=== PATIENT | female | born 1985 | race American Indian/Alaskan Native ===

== ENCOUNTER 2021-02-22 10:52 | Outpatient (CLI) | payer MEDICAID ==
[2021-02-22] MEDS ORDERED: LACTATED RINGERS 500 ML IV ONE (11:46)
--- NOTE | 2021-02-22 12:28 | Ultrasound Report ---
ULTRASOUND BIOPHYSICAL PROFILE INDICATION / CLINICAL INFORMATION: decreased movement. COMPARISON: None available. FINDINGS: BREATHING MOVEMENT = 2 GROSS BODY MOVEMENT = 2 TONE = 2 QUALITATIVE AMNIOTIC FLUID VOLUME = 2 TOTAL BIOPHYSICAL SCORE = 01/27 PRESENTATION: Cephalic. HEART RATE (beats per minute): 150 IMPRESSION: 1. biophysical profile = 01/27 Signer Name: Donald Cruz MD Signed: 02/22/2021 12:24 PM Workstation Name: [id number]
== END 2021-02-22 13:17 | disposition home or self-care (01) ==
LOC: TRG 10:52 → APU 10:53 → TRG 13:17
PROVIDERS: ATTEND Student in an Organized Health Care Education/Training Program
DX: O09.893 Supervision of other high risk pregnancies, third trimester (principal); Z3A.33 33 weeks gestation of pregnancy
CPT/HCPCS: 59025; 76819

== ENCOUNTER 2021-03-11 16:09 | Outpatient (CLI) | payer OTHER, MEDICAID ==
[2021-03-11] MEDS ORDERED: LACTATED RINGERS 1,000 ML IV ONE ×2 (16:20→16:21)
[2021-03-11] MEDS ORDERED: METOCLOPRAMIDE 10 MG/2 ML INJ IV ONE ×2 (16:21)
[2021-03-11] MEDS ORDERED: ONDANSETRON 4 MG/2 ML INJ IV ONE ×2 (16:21→16:24)
[2021-03-11 16:40] VITALS: BP 112/72
[2021-03-11 17:19] LABS: Bacteria,Urine 2+ /HPF (Negative); Bilirubin,Urine SM (Negative); Blood,Urine NEG (Negative); Color,Urine Amber (Yellow); Mucus,Urine 3+ /HPF
[2021-03-11 17:39] LABS: Ictotest,Urine Negative (Negative)
== END 2021-03-11 19:06 | disposition home or self-care (01) ==
LOC: TRG 16:09 → APU 16:12 → TRG 19:06
PROVIDERS: ATTEND Obstetrics & Gynecology
DX: O21.2 Late vomiting of pregnancy (principal); O24.419 Gestational diabetes mellitus in pregnancy, unspecified control; O26.893 Other specified pregnancy related conditions, third trimester; R10.9 Unspecified abdominal pain; O09.523 Supervision of elderly multigravida, third trimester; Z3A.36 36 weeks gestation of pregnancy; Z87.891 Personal history of nicotine dependence
CPT/HCPCS: 81001; 96361; 96365; 96368; J2405; J2765; J7120

== ENCOUNTER 2021-04-01 09:15 | Inpatient (IN) | payer MEDICAID ==
--- NOTE | 2021-03-29 18:11 | History and Physical Report ---
History of Present Illness Date of examination: 03/25/21 Date of admission: 04/01/21 Chief complaint: here for and to get my tubes tide History of present illness: Pt present for scheduled repeat c/s with BTL. Pt has been complicated by obesity, GDM for which she is on metformin, as well as AMA. All risk, benefits and alternatives were d/w pt and questions were addressed and answered. Consents were signed and placed on the chart. EDC Confirmation: 04/07/2021 Gestational Age: 38.5 weeks Past History : 4 Term Births: 2 Premature Births: 0 Living Children: 2 Para: 2 Mult. Births: 0 Prev : 2 Prev. attempt? 0 Aborta: 1 Elect. Ab: 0 Spont. Ab: 1 Ectopics: 0 # 1 Delivery date: 2010 Weeks Gestation: term Delivery type: Anesthesia type: epidural Delivery location: [facility] Infant Sex: Male weight: 6-7 Name: Rebekah Comments: c/s was due to failue to dilate; "I have a little pelvis" # 2 Delivery date: 2014 Weeks Gestation: term Delivery type: Anesthesia type: epidural Delivery location: [facility] Infant Sex: Male weight: 8-3 Name: Nelly Comments: GDM oral meds, denies surgical complications # 3 Delivery date: 12/2019 Weeks Gestation: 7 Delivery type: SAB Comments: pt states she had heavy bleeding then pain Past Medical History: Negative Past Medical History GDM 2015 Glyburide pt states she had HTN in the past Past Surgical History: X 2 2010 and 2014 Cholecystectomy 2011 Past Medical History 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 Infection History Hx of STD: none HIV Risk Eval: no Hepatitis B Risk Eval: low risk Personal hx. of genital herpes: no Partner hx. of genital herpes: no Rash, Viral, or Febrile illness since last LMP? no Varicella/Chicken Pox Status: Previous Disease TB Risk: no Genetic History ADVANCED MATERNAL AGE Congenital Heart Defect: Mom: no Dad: no Josh Disease: Mom: no Dad: no Thalassemia Mom: no Dad: no Neural Tube Defect Mom: no Dad: no Down's Syndrome Mom: no Dad: no Ralph-Sachs Mom: no Dad: no Sickle Cell Disease/Trait Mom: no Dad: no Hemophilia Mom: no Dad: no Muscular Dystrophy Mom: no Dad: no Cystic Fibrosis Mom: no Dad: no [place] Chorea Mom: no Dad: no Mental Retardation Mom: no Dad: no Fragile X Mom: no Dad: no Other Genetic/Chromosomal Disorder Mom: no Dad: no Child w/other defect Mom: no Dad: no Enviromental Exposures Xray Exposure: no Medication, drug, or alcohol use since LMP: no Chemical/Other Exposure: no Exposure to Cat Liter: no Hx of Parvovirus (Fifth Disease): no Occupational Exposure to Children: none Past History Past Medical History: other (see hpi) Past Surgical History: other (see hpi) OENOLOGIST History: other (see hpi) Family/Genetic History: other (see hpi) Social history: other (see hpi) - Obstetrical History Expected Date of Delivery: 04/07/21 Actual Gestation: 38 Week(s) 5 Day(s) : 5 Para: 2 Number of Living Children: 2 Medications and Allergies Allergies Allergy/AdvReac Type Severity Reaction Status Date / Time Latex, Natural Rubber Allergy Severe Itching Verified 03/11/21 16:39 shellfish derived Allergy Rash Verified 03/11/21 16:39 Home Medications Medication Instructions Recorded Confirmed Last Taken Type glyBURIDE [Glyburide] 1 tab PO BID 08/09/14 08/14/14 08/09/14 10:00 History Ibuprofen [Motrin 800 MG tab] 800 mg PO Q6H PRN #30 tablet 08/14/14 Unknown Rx oxyCODONE /ACETAMINOPHEN [Percocet 1 tab PO Q4HR #30 tablet 08/14/14 Unknown Rx 5/325 mg] Metoclopramide [Reglan] 10 mg PO TID #30 tab 03/11/21 Unknown Rx Ondansetron [Zofran ODT TAB] 8 mg PO Q12HR #15 tab.rapdis 03/11/21 Unknown Rx Review of Systems All systems: negative - Physical Exam Cardiovascular: Normal S1, Normal S2 Lungs: Positive: Clear to auscultation, Normal air movement Abdomen: Positive: normal appearance, soft. Negative: distention, tenderness, guarding Genitourinary (Female): Positive: other (deferred) Extremities: Positive: normal. Negative: tenderness, edema Deep Tendon Reflex Grade: Normal +2 - Obstetrical FHR: auscultation normal Results All other labs normal. Assessment and Plan - Patient Problems (1) Previous delivery affecting Status: Acute Plan to address problem: -consents signed and placed on the chart -all risk, benefits and alternatives were d/w pt (2) Encounter for sterilization Status: Acute Plan to address problem: -all risk, benefits and alternatives were d/w pt -pt desires salpingectomy (3) AMA (advanced maternal age) multigravida 35+ Status: Acute Qualifiers: Trimester: third trimester Qualified Code(s): O09.523 - Supervision of elderly multigravida, third trimester (4) GDM (gestational diabetes mellitus) Status: Acute Qualifiers: Gestational diabetes mellitus control: oral hypoglycemic-controlled Trimester: third trimester Qualified Code(s): O24.415 - Gestational diabetes mellitus in , controlled by oral hypoglycemic drugs
[~2021-04-01 09:15] MED LIST: ceFAZolin/Water 2 GM/20 ML 2 GM/20 ML SYRINGE IV NR
[2021-04-01] MEDS ORDERED: METOCLOPRAMIDE 10 MG/2 ML INJ IV SCH (09:30)
[2021-04-01] MEDS ORDERED: FAMOTIDINE 20 MG/2 ML INJ IV SCH (09:30)
[2021-04-01] MEDS ORDERED: LACTATED RINGERS 1,000 ML IV SCH (09:30)
[2021-04-01] MEDS ORDERED: OXYTOCIN DRIP 30 UNITS/500 ML BAG IV SCH (09:30)
[2021-04-01] MEDS ORDERED: BICITRA ORAL LIQD 30ML PO SCH (09:30)
--- NOTE | 2021-04-01 10:12 | Anesthesia Day of Surgery ---
Anesthesia Day of Surgery - Day of Surgery Patient Examined: Yes Patient H&P Reviewed: Yes Patient is NPO: Yes Beta Blockers: No Cardiac Clearance: No Pulmonary Clearance: No Scott's Test: N/A
--- NOTE | 2021-04-01 10:15 | Anesthesia Consultation ---
Anesthesia Consult and Med Hx Date of service: 04/01/21 - Airway Anesthetic Teeth Evaluation: Good ROM Head & Neck: Adequate Mental/Hyoid Distance: Adequate Mallampati Class: Class II Intubation Access Assessment: Good - Pulmonary Exam CTA: Yes - Cardiac Exam Cardiac Exam: RRR - Pre-Operative Health Status ASA Pre-Surgery Classification: ASA2 Proposed Anesthetic Plan: Spinal Nerve Block: TAP - Pulmonary Hx Smoking: Yes (quit with ) Hx Asthma: No Hx Respiratory Symptoms: No SOB: No COPD: No Home Oxygen Therapy: No Hx Pneumonia: No Hx Sleep Apnea: No - Cardiovascular System Hx Hypertension: No Hx Coronary Artery Disease: No Hx Heart Attack/AMI: No Hx Angina: No Hx Percutaneous Transluminal Coronary Angioplasty (PTCA): No Hx Cardia Arrhythmia: No Hx Pacemaker: No Hx Internal Defibrillator: No Hx Valvular Heart Disease: No Hx Heart Murmur: No Hx Peripheral Vascular Disease: No - Central Nervous System Hx Neuromuscular Disorder: No Hx Seizures: No CVA: No Hx Back Pain: No Hx Psychiatric Problems: No - Gastrointestinal Hx Ulcer: No Hx Gastroesophageal Reflux Disease: Yes - Endocrine Hx Renal Disease: No Hx End Stage Renal Disease: No Hx Cirrhosis: No Hx Liver Disease: No Hx Insulin Dependent Diabetes: Yes (gestational diabetes) Hx Non-Insulin Dependent Diabetes: No Hx Thyroid Disease: No Hx Hypothyroidism: No Hx Hyperthyroidism: No - Hematic Hx Anemia: No Hx Sickle Cell Disease: No - Other Systems Hx Alcohol Use: No Hx Substance Use: No Hx Cancer: No Hx Obesity: Yes (BMI 60) - Additional Comments Anesthesia Medical History Comments: C/Sx2
[2021-04-01] MEDS ORDERED: KETOROLAC 30 MG/1 ML INJ ONE (10:24)
[2021-04-01] MEDS ORDERED: ONDANSETRON 4 MG/2 ML INJ ONE ×2 (10:24→11:45)
[2021-04-01] MEDS ORDERED: dexAMETHasone 20 MG/5 ML VIAL ONE (10:27)
[2021-04-01] MEDS ORDERED: BUPIVACAINE/PF (0.5%) 5 MG/1 ML 30 ML VIAL INFILTRATI ONE (10:27)
[2021-04-01 10:29] LABS: Basophils % (Auto) 0.3 % (0.0-1.8); Eosinophils % (Auto) 0.4 % (0.0-4.3); Hematocrit 33.5 % (30.3-42.9); Hemoglobin 11.2 gm/dl (10.1-14.3); Lymphocytes # (Auto) 1.9 K/mm3 (1.2-5.4); Lymphocytes % (Auto) 29.4 % (13.4-35.0); Mean Corpuscular HGB Conc 34 % (30-34); Mean Corpuscular Volume 76 fl (79-97); Monocytes # (Auto) 0.6 K/mm3 (0.0-0.8); Monocytes % (Auto) 9.1 % (0.0-7.3); Platelet Count 288 K/mm3 (140-440); Red Cell Distribution Width 18.3 % (13.2-15.2)
[2021-04-01] MEDS ORDERED: HYDROmorphone 1 MG/1 ML INJ IV PRN (11:00)
[2021-04-01] MEDS ORDERED: NalbUPHINE 10 MG/1 ML INJ IV PRN (11:00)
[2021-04-01] MEDS ORDERED: ONDANSETRON 4 MG/2 ML INJ IV PRN (11:00)
[2021-04-01] MEDS ORDERED: diphenhydrAMINE 50 MG/ML VIAL IV PRN (11:00)
[2021-04-01] MEDS ORDERED: PROMETHAZINE 25 MG TAB PO PRN (11:00)
[2021-04-01] MEDS ORDERED: PROMETHAZINE 25 MG RECT SUPP PR PRN (11:00)
[2021-04-01] MEDS ORDERED: NALOXONE 0.4 MG/1 ML INJ IV PRN ×2 (11:00→13:30)
[2021-04-01] MEDS ORDERED: ceFAZolin 1 GM VIAL ONE (11:37)
[2021-04-01] MEDS ORDERED: LACTATED RINGERS 1,000 ML ONE (11:41)
[2021-04-01] MEDS ORDERED: PHENYLEPHRINE/NS 1,000 MCG/10 ML SYRINGE (OR USE) IV ONE (11:45)
[2021-04-01] MEDS ORDERED: ceFAZolin/STERILE WATER 2 GM/20 ML SYRINGE IV ONE (11:50)
--- NOTE | 2021-04-01 12:52 | Progress Note ---
Spinal Anesthesia Block - Spinal Anesthesia Block Start Time: 11:55 Stop Time: 12:10 Performed by:: BEE HANSEN (Abida Hernandez [facility]) Procedure: Combined spinal epidural is being performed for C/S. H&P, labs were reviewed. All questions and concerns were answered. Informed consent was obtained. Timeout performed. Patient in sitting position on side of bed. Sterile prep and drape was performed. 3 mL 1% lidocaine skin wheal at L [3]-L [4]. Needle introducer advanced. 25-gauge spinal needle advanced, unsuccessful attempt. 3 mL 1% lidocaine skin wheal at L [2]-L [3]. 18-gauge hustead epidural needle advanced to [id number] using air technique, [9]. 27-gauge spinal needle advanced, positive free-flowing CSF. Spinal dose of [Marcaine 10mg and Precedex 5mcg]. Epidural catheter advanced to [15] cm. [negative] Aspiration, [negative] test dose. Sterile dressing applied. Patient tolerated procedure well.
--- NOTE | 2021-04-01 13:27 | Operative Report ---
Operative Report Operative Report: Date of procedure: 04/01/2021 Pre-operative diagnosis: 39 weeks gestation Gestational diabetes Morbid obesity Previous section x2 Desires permanent sterilization Post-operative diagnosis: Same Procedure name(s): Repeat section Via Pfannenstiel skin incision Bilateral salpingectomy Surgeon: Dr. Pablo Doors Prefitter: ESVIN Anesthesia: Combined spinal epidural EBL: Qualitative blood loss 1311 mL Urine output: 100 mL of clear urine out at the end of the procedure Fluids: 1200 mL Findings: Liveborn male infant weight 6 pounds 13 ounces Apgars of 8 and 9 at 1 and 5 minutes What appeared to be evidence of endometriosis on the anterior and posterior surfaces of the uterus Grossly normal fallopian tubes and ovaries bilaterally Indications: Patient presents for scheduled repeat section with bilateral tubal ligation. All risk benefits and alternatives were discussed with the patient. Patient desired removal of fallopian tubes. Consents were signed and placed on the chart. Procedure: Patient was taking to the operating room. Patient was then prepped and draped in sterile fashion after anesthesia was found to be adequate. A low transverse skin incision was made with the scalpel through previous incisional scar and carried down to the underlying layer of fascia with the Bovie. The fascia was then incised in the midline and this incision was extended bilaterally with the Bovie. The superior aspect of the fascia was grasped with Uma clamps tented upward and dissected off of the anterior rectus muscles with the scalpel. In similar fashion the inferior aspect of the fascia was grasped with Uma clamps tented upward and dissected off of the anterior rectus muscles. The rectus muscles were then bluntly divided in the midline. The peritoneum was identified and entered into sharply. The bladder blade was placed. [The bladder flap was created using the Metzenbaum scissors.] The bladder blade was replaced. [The Jacobo retractor was placed.] A lower transverse uterine incision was made with the scalpel and extended bilaterally with the bandage scissors. Artificial rupture of membranes was performed yielding [clear amniotic fluid]. The 's head was then delivered atraumatically. The anterior shoulder and rest of delivered without difficulty. The umbilical cord was clamped x2. The cord was cut. The was then placed in sterile bassinet. [The cord blood was collected.] The placenta was manually extracted in its entirety. The uterus was exteriorized and cleared of all clots and debris. The uterine incision was closed using 0 Vicryl in a running locking fashion. [id number] sutures were then placed along the uterine incision to secure excellent hemostasis. Attention was then turned to the right fallopian tube. The tube was undermined with the Madonna clamp cauterized and transected. The tube was removed in its entirety and handed off to pathology. Excellent hemostasis was noted. This was done bilaterally. The posterior cul-de-sac was copiously irrigated. The uterus was returned to the abdomen. The gutters were also irrigated. The anterior rectus muscles were reapproximated using 3-0 Vicryl. The anterior rectus fascia was reapproximated using 0 Vicryl in a running fashion. The subcuticular fat was reapproximated using 2-0 Vicryl in a running fashion. The skin was reapproximated with a 4-0 Monocryl with a subcuticular stitch.. The patient tolerated the procedure well. Sponge lap and needle counts were all correct x3. Patient was taken to the recovery room awake and in stable condition.
[2021-04-01] MEDS ORDERED: LANOLIN/ZINC/DIMETHICONE (LANSINOH) 7 GM TP PRN (13:30)
[2021-04-01] MEDS ORDERED: WITCH HAZEL/ GLYCERIN PAD TP PRN (13:30)
[2021-04-01] MEDS ORDERED: KETOROLAC 30 MG/1 ML INJ IV PRN (13:30)
[2021-04-01] MEDS ORDERED: IBUPROFEN 600 MG TAB PO PRN (13:30)
[2021-04-01] MEDS ORDERED: HYDROcodone/ACETAMINOPHEN 5-325 MG TAB PO PRN (13:31)
[2021-04-01] MEDS ORDERED: SIMETHICONE 80 MG CHEW TAB PO PRN (13:31)
[2021-04-01] MEDS ORDERED: ACETAMINOPHEN 325 MG TAB PO PRN (13:31)
[2021-04-01] MEDS ORDERED: D5W/LACTATED RINGERS 1,000 ML IV SCH (14:00)
[2021-04-01] MEDS ORDERED: METHYLERGONOVINE MALEATE 0.2 MG/ML VIAL IM SCH (17:30)
--- NOTE | 2021-04-01 19:09 | Event Note ---
Date: 04/01/21 Called by RN due to pt having moderate bleeding. MD gave order for IM methergine times on dose IM. Pt examined and noted to have no clots expressed from uterus and minimal bleeding at this time. Pt has h/o pp bleeding after last c/s. Advised that we will con't to monitor at this time. pt and expressed understanding and questions were addressed and answered.
[2021-04-02 02:13] LABS: Hematocrit 28.7 % (30.3-42.9); Hemoglobin 9.6 gm/dl (10.1-14.3)
--- NOTE | 2021-04-02 07:40 | Progress Note ---
Assessment and Plan A: 36 y.o. s/p rpt with salpingectomy, GDM, obesity, AMA. POD #1. Drainage on dressing. P: Continue to monitor drainage on dressing. Encourage ambulation. Advance diet as tolerated. Anticipate discharge home on 04/02. Subjective - Subjective Date of service: 04/02/21 (Pt doing well.) Principal diagnosis: s/p rpt with salpingectomy, GDM, obesity, AMA, POD #1 Patient reports: appetite normal, voiding normally, pain well controlled, flatus, ambulating normally : doing well Objective - Vital Signs Latest vital signs: Vital Signs Temp Pulse Resp BP BP Pulse Ox Pulse Ox 04/02/21 05:30 99 04/02/21 04:00 98.7 F 77 18 118/74 04/02/21 00:22 98.6 F 71 18 123/69 97 04/01/21 23:00 98 04/01/21 22:06 18 04/01/21 22:00 98 04/01/21 20:31 98.6 F 69 18 111/62 99 04/01/21 19:30 99 04/01/21 14:59 97.5 F L 55 L 18 121/78 100 100 04/01/21 14:30 57 L 13 132/80 100 04/01/21 14:20 64 9 L 129/86 100 04/01/21 14:15 97.5 F L 63 12 123/79 100 04/01/21 14:00 81 11 L 114/71 99 04/01/21 13:45 76 13 108/71 97 04/01/21 13:30 97.4 F L 76 13 117/72 92 04/01/21 11:16 117 H 100 04/01/21 11:11 107 H 100 04/01/21 11:06 123 H 100 04/01/21 11:01 109 H 100 04/01/21 10:56 91 H 99 04/01/21 10:51 104 H 100 04/01/21 10:46 104 H 99 04/01/21 10:44 98.2 F 18 99 04/01/21 10:41 105 H 99 04/01/21 10:39 99 04/01/21 10:27 114 H 98 04/01/21 10:25 105 H 94 04/01/21 10:22 114 H 99 04/01/21 10:17 110 H 100 04/01/21 10:12 90 99 04/01/21 10:07 94 H 100 04/01/21 10:02 116 H 99 04/01/21 09:56 86 100 04/01/21 09:51 85 100 04/01/21 09:46 120 H 115/72 96 04/01/21 09:41 125 H 99 Intake and Output 04/01/21 04/02/21 04/02/21 22:59 06:59 14:59 Intake Total 210 1000 Output Total 700 800 Balance -490 200 Intake: Oral 210 1000 Output: Urine 700 800 Indwelling Catheter 300 300 Uretheral (Combs) 400 300 Void 200 Other: Total, Intake Amount 120 200 Total, Output Amount 200 100 - Exam Narrative Exam: There was a small amount of drainage noted on the dressing this AM. Appeared to be old drainage. Boundaries of the drainage marked. Breasts: Present: deferred Cardiovascular: Present: Regular rate Lungs: Present: Normal air movement Abdomen: Present: normal appearance, soft, other (hypoactive bowel sounds) Vulva: both: normal Uterus: Present: normal (Light lochia noted.) Extremities: Present: normal Incision: Present: intact, other (A small amount of bloody drainage noted on dressing. ), dressed - Labs Labs: Abnormal lab results 04/01/21 04/02/21 Range/Units 10:00 01:42 Hgb 9.6 L (10.1-14.3) gm/dl Hct 28.7 L (30.3-42.9) % MCV 76 L (79-97) fl MCH 26 L (28-32) pg RDW 18.3 H (13.2-15.2) % Lake % (Auto) 9.1 H (0.0-7.3) %
[2021-04-02] MEDS: FERROUS SULFATE 325 MG TAB PO SCH (10:38)
--- NOTE | 2021-04-02 12:25 | Post Anesthesia Evaluation ---
- Post Anesthesia Evaluation Patient Participated: Yes Airway Patent: Yes Stable Respiratory Function: Yes Nausea/Vomiting: No Temp > 96.8F: Yes Pain Manageable: Yes Adequeate Hydration: Yes Anesthesia Complications: No Block Receding Appropriately: Yes Patient on Ventilator: No
[2021-04-02] MEDS ORDERED: IBUPROFEN 800 MG TAB PO PRN (13:00)
[2021-04-02] MEDS ORDERED: TETANUS,DIPH,PERTUSS(ACELL) VACCINE 0.5 ML SYRINGE IM ONE (13:31)
--- NOTE | 2021-04-03 08:44 | Discharge Summary ---
Providers - Providers Date of Admission: 04/01/21 09:15 Date of discharge: 04/03/21 (desires d/c home today) Attending physician: MUSTAPHA HUERTA Primary care physician: MUSTAPHA HUERTA Hospitalization Reason for admission: repeat c/s Condition: Good Pertinent studies: postop H&H 9.6/28.7, asymptomatic anemia due to acute blood loss Procedures: repeat c/s w/ salpengectomy Hospital course: uncomplicated c/s and postop course Disposition: 01 HOME / SELF CARE / HOMELESS Final Discharge Diagnosis (Prints w/discharge instructions): postop c/s Time spent for discharge: 20 - Discharge Diagnoses (1) delivery delivered Status: Acute (2) Encounter for sterilization Status: Acute Core Measure Documentation - Palliative Care Palliative Care/ Comfort Measures: Not Applicable - Core Measures Any of the following diagnoses?: none Exam - Constitutional Vitals: Temp Pulse Resp BP Pulse Ox 97.6 F 84 20 111/67 95 04/03/21 00:35 04/03/21 00:35 04/03/21 00:35 04/03/21 00:35 04/03/21 00:35 General appearance: Present: no acute distress, well-nourished - EENT Eyes: Present: PERRL ENT: hearing intact, clear oral mucosa - Neck Neck: Present: supple, normal ROM - Respiratory Respiratory effort: normal Respiratory: bilateral: CTA - Cardiovascular Heart Sounds: Present: S1 & S2. Absent: rub, click - Extremities Extremity abnormal: edema (1+ non-pitting BLE) Peripheral Pulses: within normal limits - Abdominal General gastrointestinal: Present: soft, non-tender, non-distended, normal bowel sounds Female genitourinary: Present: normal - Integumentary Integumentary: Present: clear, warm, dry - Musculoskeletal Musculoskeletal: gait normal, strength equal bilaterally - Psychiatric Psychiatric: appropriate mood/affect, intact judgment & insight - Neurologic Neurologic: CNII-XII intact, moves all extremities - Additional findings Additional findings: incision D&I, lochia scant, bottle feeding Plan Activity: advance as tolerated Diet: regular Wound: open to air, keep clean and dry Follow up with: MUSTAPHA HUERTA MD [Primary Care Provider] - 7 Days (Congratulations! please call [phone] to schedule your son's circumcision and your incision check in 1 week. Bring EMLA cream to your son's appointment and wait for instructions. Call for any questions or concerns. ) Prescriptions: Docusate Sodium [Colace] 100 mg PO BID PRN #60 capsule PRN Reason: Constipation Lidocain2.5%/Prilocai2.5% [Emla] 2 gm TP ONCE #1 tube Ferrous Sulfate [Feosol 325 MG tab] 325 mg PO QDAY #60 tablet Ibuprofen [Motrin 800 MG tab] 800 mg PO Q8HR PRN #30 tablet PRN Reason: Pain, Moderate (4-6) oxyCODONE /ACETAMINOPHEN [Percocet 5/325] 1 tab PO Q4HR #30 tab
[2021-04-03] MEDS: FERROUS SULFATE 325 MG TAB PO SCH (10:11)
[2021-04-03 12:45] VITALS: BP 119/83
== END 2021-04-03 11:50 | disposition home or self-care (01) | DRG 765 ==
LOC: APU 09:15 → OB 14:54
PROVIDERS: ADMIT Obstetrics & Gynecology; ATTEND Obstetrics & Gynecology
PROC: 10D00Z1 Extraction of Products of Conception, Low, Open Approach (ICD-10-PCS; principal; 2021-04-01)
PROC: 0UT70ZZ Resection of Bilateral Fallopian Tubes, Open Approach (ICD-10-PCS; 2021-04-01)
PROC: 3E0234Z Introduction of Serum, Toxoid and Vaccine into Muscle, Percutaneous Approach (ICD-10-PCS; 2021-04-02)
DX: O34.211 Maternal care for low transverse scar from previous cesarean delivery (principal); D62 Acute posthemorrhagic anemia; O24.429 Gestational diabetes mellitus in childbirth, unspecified control; Z3A.38 38 weeks gestation of pregnancy; Z20.822 Contact with and (suspected) exposure to COVID-19; Z23 Encounter for immunization; Z87.891 Personal history of nicotine dependence; O99.62 Diseases of the digestive system complicating childbirth; K21.9 Gastro-esophageal reflux disease without esophagitis; E66.01 Morbid (severe) obesity due to excess calories; O90.81 Anemia of the puerperium; Z91.040 Latex allergy status; Z90.49 Acquired absence of other specified parts of digestive tract; Z91.048 Other nonmedicinal substance allergy status; Z91.013 Allergy to seafood; Z30.2 Encounter for sterilization
CPT/HCPCS: 36415; 85014; 85018; 85025; 86592; 86850; 86900; 86901; 88302; 88307; G0378; C1765; J0690; J1100; J1885; J2210; J2370; J2405; J2590; J2765; J3490; J7120; J7121; U0003